=== PATIENT | female | born 1955 | race American Indian/Alaskan Native ===

== ENCOUNTER 2017-12-18 07:56 | Outpatient (CLI) | payer MEDICARE, OTHER ==
--- NOTE | 2017-12-22 08:53 | Vascular Lab Report ---
Left Lower Extremity Venous Duplex Study: Reason for Exam: Swelling of the left lower extremity. Comments on the Right: A limited duplex study was done of the proximal veins of the right lower extremity. All veins visualized are freely compressible without evidence of internal echogenicity. Flow is spontaneous and phasic throughout. No evidence of acute or chronic thrombus is seen in any of the vessels visualized. Comments on the Left: All veins visualized are freely compressible without evidence of internal echogenicity. Flow is spontaneous and phasic throughout. No evidence of acute or chronic thrombus is seen in any of the vessels visualized. Impression: No evidence of acute or chronic deep venous thrombosis in the left lower extremity.
== END 2017-12-18 07:57 | disposition home or self-care (01) ==
LOC: VAS 07:56
PROVIDERS: ATTEND Podiatrist Foot & Ankle Surgery
DX: M79.662 Pain in left lower leg (principal); M79.89 Other specified soft tissue disorders

== ENCOUNTER 2019-04-01 08:38 | Outpatient (CLI) | payer OTHER ==
--- NOTE | 2019-04-01 11:22 | Vascular Lab Report ---
PROCEDURE: VL VENOUS DUPLEX LE BILAT TECHNIQUE: Grayscale, color flow and spectral waveform images were obtained of bilateral lower extre mities. HISTORY: INFLAMMATION AND SWELLING, CALF PAIN COMPARISON: None FINDINGS: There is no deep venous thrombosis seen in the left or right lower extremity. Flow is demonstrated by color flow and spectral waveform imaging. There is appropriate wall compression and augmentation. No superficial venous thrombus seen. IMPRESSION: There is no evidence for DVT in either right or left lower extremity. This document is electronically signed by Ina Combs MD., Apr 01 2019 11:19:49 AM ET
== END 2019-04-01 08:39 | disposition home or self-care (01) ==
LOC: VAS 08:38
PROVIDERS: ATTEND Podiatrist Foot & Ankle Surgery
DX: M79.662 Pain in left lower leg (principal); M79.89 Other specified soft tissue disorders
CPT/HCPCS: 93970